=== PATIENT | male | born 1995 | race African-American/Black ===

== ENCOUNTER 2017-08-14 09:26 | Emergency (ER) | payer SELFPAY ==
[2017-08-14] MEDS ORDERED: Proparacaine 0.5% Opth 15 ML BOT ONE (10:29)
[2017-08-14] MEDS ORDERED: Fluorescein Opthalmic Strip ONE (10:29)
== END 2017-08-14 11:10 | disposition home or self-care (01) ==
LOC: ERS 09:26
DX: H00.014 Hordeolum externum left upper eyelid (principal)
CPT/HCPCS: 99283